=== PATIENT | female | born 1950 | race Caucasian/White ===

== ENCOUNTER → 2017-10-31 | Outpatient (CLI) | payer OTHER ==
[2016-09-30 00:21] VITALS: BP 146/97
--- NOTE | 2017-10-31 14:21 | MRI ---
History: Right shoulder pain decreased range of motion. Technique: Multiplanar, multisequence MR imaging of the right shoulder was performed without contrast . Comparison:NONE Findings: There is mild to moderate motion degradation. There is a full-thickness tear of the supraspinatus ten don, with up to 2.7 cm retraction to the superior aspect of the humeral head. The tear is difficult t o accurately measure due to motion artifact however appears to measure approximately 2 cm in AP dimen pa. The over spinatus tendon is thinned consistent with a partial thickness tear. Teres minor tendo n appears intact. The sub scapularis tendon appears grossly intact again evaluation limited by motion artifact. There is moderate to severe fatty atrophy of supraspinatus and infra spinatus. Long head biceps tendon appears intact within the bicipital groove. The biceps anchor appears intact. There is no significant glenohumeral joint effusion. No displaced labral tears are demonstrated on t his non distended joint. There is degenerative fraying of the superior labrum. Articular cartilage ca nnot be well evaluated due to the motion artifact. There is moderate severe acromioclavicular osteoarthrosis with synovitis and hypertrophic changes wit h an anterior acromial spur resulting in narrowing of the subacromial space. There is an acromioclavi cular joint effusion. There is T2 signal within the anterior deltoid consistent with a partial thickn ess tear. Impression: 1. Large full-thickness tear of the supraspinatus tendon with retraction to the superior convexity of the humeral head. The infra spinatus tendon is diffusely thinned consistent with a partial-thickness tear. Detailed evaluation is limited by motion artifact. There is moderate to severe fatty atrophy o f both supraspinatus and infra spinatus 2. Moderate severe acromioclavicular osteoarthrosis with synovitis and hypertrophic changes resulting in narrowing of the subacromial space. Correlate clinically for shoulder impingement syndrome. 3. AC joint effusion. If there has been recent trauma this may represent sequela of a grade 1 acromio clavicular joint injury. Correlate for focal tenderness over the AC joint 4. Myotendinous strain/partial-thickness tear of the anterior deltoid. Reported By:
--- NOTE | 2017-10-31 17:15 | MRI ---
MRI SPINE CERVICAL WITHOUT CONTRAST CLINICAL HISTORY: 67-year-old female with neck pain and right radicular symptoms. COMPARISON: None. Technique: Multiplanar, multisequence MRI images of the cervical spine were obtained without the adm inistration of intravenous contrast. FINDINGS: Study is limited secondary to patient motion. Straightening of the cervical lordosis as imaged. Subtle degenerative retrolisthesis C4 on C5. The cr aniocervical junction is normal. Vertebral body heights are preserved. There is mild loss of disc spa ce C3-C6 with associated signal loss. Type 2 endplate changes C3-C4 and C5-C6 posteriorly. Remaining marrow signal is unremarkable. Cord signal is normal. The visualized posterior fossa structures are normal. C2-C3: No central canal or neural foraminal stenosis. C3-C4: Broad-based disc osteophyte complex produces subtle flattening the ventral cord without cord s ignal change. Central canal measures 11.8 mm. Uncovertebral facet joint hypertrophy produce mild righ t neural foraminal stenosis. C4-C5: Broad-based disc osteophyte complex combines with degenerative retrolisthesis to narrow canal at 9.8 mm with flattening of the ventral cord without cord signal change. Uncovertebral joint hypertr ophy with spurring with mild facet hypertrophy produces mild bilateral neural foraminal stenosis. C5-C6: Broad-based disc osteophyte complex produces mild flattening of the ventral cord without cord signal change. Central canal measures 10.2 mm. Uncovertebral joint hypertrophy with spurring produces mild bilateral neural foraminal stenosis. C6-C7: Central disc osteophyte without cord contour deformity or signal change. Central canal measure s 11.1 mm. No neural foraminal stenosis. C7-T1: No central canal or neural foraminal stenosis. Paraspinous soft tissues are unremarkable. IMPRESSION: 1. Multilevel disc degeneration and spondyloarthropathy with multilevel cord contour deformities with out signal change. No significant central canal or neural foraminal stenosis. 2. See level by level descriptions above. Reported By:
== END | disposition home or self-care (01) ==
LOC: RAD 10:19
PROVIDERS: ATTEND Nurse Practitioner Family
DX: M54.12 Radiculopathy, cervical region (principal); S46.811A Strain of other muscles, fascia and tendons at shoulder and upper arm level, right arm, initial encounter; X58.XXXA Exposure to other specified factors, initial encounter; M19.011 Primary osteoarthritis, right shoulder; M65.811 Other synovitis and tenosynovitis, right shoulder; M25.411 Effusion, right shoulder
CPT/HCPCS: 72141; 73221